=== PATIENT | male | born 1995 | race Caucasian/White ===

== ENCOUNTER 2018-06-02 17:36 | Emergency (ER) | payer SELFPAY ==
[~2018-06-02] VITALS: Ht 172.7 cm; Wt 81.6 kg
[2018-06-02 19:08] LABS: BASO # 0.1 x10^3/uL (0.0-0.2); BASO % 1 % (0-3); EOS % 0 % (0-3); HEMOGLOBIN 17.1 g/dL (13.0-17.5); LYMPH # 1.5 x10^3/uL (1.0-4.8); LYMPH % 14 % (24-48); MEAN CORPUSCULAR HEMOGLOBIN 31 pg (25-35); MEAN CORPUSCULAR HGB CONC 34 g/dL (31-37); MEAN CORPUSCULAR VOLUME 91 fL (79-100); MONO # 0.7 x10^3/uL (0.0-1.1); MONO % 7 % (0-9); NEUT # 8.8 x10^3uL (1.8-7.7); NEUT % 79 % (31-73); PLATELET COUNT 316 x10^3/uL (140-400); RED CELL DISTRIBUTION WIDTH 12.8 % (11.5-14.5); WHITE BLOOD COUNT 11.1 x10^3/uL (4.0-11.0)
[2018-06-02 19:30] LABS: CALCIUM 10.1 mg/dL (8.5-10.1); GFR 91.8; POTASSIUM 3.8 mmol/L (3.5-5.1)
[2018-06-02 20:14] LABS: BARBITURATES NEG (NEG); BENZODIAZEPINES NEG (NEG); CANNABINOIDS POS (NEG); COCAINE NEG (NEG); METHADONE NEG (NEG); OPIATES NEG (NEG); PHENCYCLIDINE NEG (NEG)
[2018-06-02 20:22] LABS: AMPHETAMINE/METHAMPHETAMINE NEG (NEG)
--- NOTE | 2018-06-02 20:45 | PHYS DOC ---
Past Medical History Past Medical History: No Pertinent History (JOESPH RÍOS APRN) Past Surgical History: No Surgical History (JOESPH RÍOS APRN) Alcohol Use: Heavy Additional Information: 12 LITTLE MINI BOTTLES A DAY, LAST DRINK 3 WEEKS AGO, PER MOTHER'S REPORT. PT REPORTS DRINKING 2 TALL BOY BEERS YESTERDAY, 5.9% ALCOHOL Drug Use: Marijuana (JOESPH RÍOS APRN) Adult General Chief Complaint Chief Complaint: CHEST PAIN HPI HPI Patient is a 23 year old male with a diagnosed history of anxiety who presents to the ED today with multiple complaints. Patient is complaining of dizziness "for years", he is also complaining of left-sided chest pain that has been happening for "weeks". Patient denies any pain right now. Denies anything specifically exacerbating or making his chest pain better. Patient also states he has intermittent episodes where he gets this chest pains, dizziness, his fingers get numb then the rest of this body becomes numb. He states he has been told he has anxiety but has never followed up with anyone. He states he uses marijuana and drinks alcohol frequently. (JOESPH RÍOS APRN) Review of Systems Review of Systems Constitutional: Denies fever or chills [] Eyes: Denies change in visual acuity, redness, or eye pain [] HENT: Denies nasal congestion or sore throat [] Respiratory: Denies cough or shortness of breath [] Cardiovascular: Reports chronic chest pain GI: Denies abdominal pain, nausea, vomiting, bloody stools or diarrhea [] : Denies dysuria or hematuria [] Musculoskeletal: Denies back pain or joint pain [] Integument: Denies rash or skin lesions [] Neurologic: Reports chronic dizziness. Denies headache, focal weakness or sensory changes [] Psych: Reports anxiety All other systems were reviewed and found to be within normal limits, except as documented in this note. (JOESPH RÍOS APRN) Allergies Allergies Allergies Coded Allergies Type Severity Reaction Last Updated Verified No Known Drug Allergies 06/02/18 No (MERVIN ALEXIS MD) Physical Exam Physical Exam Constitutional: Well developed, well nourished, no acute distress, non-toxic appearance. [] HENT: Normocephalic, atraumatic, bilateral external ears normal, oropharynx moist, no oral exudates, nose normal. [] Eyes: PERRLA, EOMI, conjunctiva normal, no discharge. [] Neck: Normal range of motion, no tenderness, supple, no stridor. [] Cardiovascular:Heart rate regular rhythm, no murmur [] Lungs & Thorax: Bilateral breath sounds clear to auscultation [] Abdomen: Bowel sounds normal, soft, no tenderness, no masses, no pulsatile masses. [] Skin: Warm, dry, no erythema, no rash. [] Back: No tenderness, no CVA tenderness. [] Extremities: No tenderness, no cyanosis, no clubbing, ROM intact, no edema. [] Neurologic: Alert and oriented X 3, normal motor function, normal sensory function, no focal deficits noted. [] Psychologic: Affect normal, judgement normal, mood normal. [] (JOESPH RÍOS APRN) Current Patient Data Vital Signs Vital Signs Date Time Temp Pulse Resp B/P (MAP) Pulse Ox O2 Delivery O2 Flow Rate FiO2 06/02/18 20:49 92 17 130/83 (99) 99 Room Air 06/02/18 17:42 98.7 98.7 (MERVIN ALEXIS MD) Lab Values Laboratory Tests Test 06/02/18 18:55 06/02/18 19:37 White Blood Count 11.1 x10^3/uL (4.0-11.0) H Red Blood Count 5.50 x10^6/uL (4.30-5.70) Hemoglobin 17.1 g/dL (13.0-17.5) Hematocrit 50.0 % (39.0-53.0) Mean Corpuscular Volume 91 fL (79-100) Mean Corpuscular Hemoglobin 31 pg (25-35) Mean Corpuscular Hemoglobin Concent 34 g/dL (31-37) Red Cell Distribution Width 12.8 % (11.5-14.5) Platelet Count 316 x10^3/uL (140-400) Neutrophils (%) (Auto) 79 % (31-73) H Lymphocytes (%) (Auto) 14 % (24-48) L Monocytes (%) (Auto) 7 % (0-9) Eosinophils (%) (Auto) 0 % (0-3) Basophils (%) (Auto) 1 % (0-3) Neutrophils # (Auto) 8.8 x10^3uL (1.8-7.7) H Lymphocytes # (Auto) 1.5 x10^3/uL (1.0-4.8) Monocytes # (Auto) 0.7 x10^3/uL (0.0-1.1) Eosinophils # (Auto) 0.0 x10^3/uL (0.0-0.7) Basophils # (Auto) 0.1 x10^3/uL (0.0-0.2) Sodium Level 139 mmol/L (136-145) Potassium Level 3.8 mmol/L (3.5-5.1) Chloride Level 99 mmol/L (98-107) Carbon Dioxide Level 21 mmol/L (21-32) Anion Gap 19 (6-14) H Blood Urea Nitrogen 9 mg/dL (8-26) Creatinine 1.0 mg/dL (0.7-1.3) Estimated GFR (Cockcroft-Gault) 91.8 Glucose Level 92 mg/dL (70-99) Calcium Level 10.1 mg/dL (8.5-10.1) Troponin I Quantitative < 0.017 ng/mL (0.000-0.055) Ethyl Alcohol Level < 10 mg/dL (0-10) Urine Opiates Screen Neg (NEG) Urine Methadone Screen Neg (NEG) Urine Barbiturates Neg (NEG) Urine Phencyclidine Screen Neg (NEG) Urine Amphetamine/Methamphetamine Neg (NEG) Urine Benzodiazepines Screen Neg (NEG) Urine Cocaine Screen Neg (NEG) Urine Cannabinoids Screen Pos (NEG) Urine Ethyl Alcohol Neg (NEG) Laboratory Tests 06/02/18 18:55 Laboratory Tests 06/02/18 18:55 (MERVIN ALEXIS MD) EKG EKG Interpreted by Dr. Keen sinus tachycardia HR 103 no STEMI[] (JOESPH RÍOS APRN) Radiology/Procedures Radiology/Procedures [] (JOESPH RÍOS APRN) Course & Med Decision Making Course & Med Decision Making Pertinent Labs and Imaging studies reviewed. (See chart for details) This is a 23-year-old male patient presented to the ED today with multiple complaints that appear chronic. Patient is complaining of chronic chest pain, chronic dizziness, chronic numbness throughout his body. Physical exam is benign. He has no chest pain in the ED. Heart score is 0. Workup in the emergency room is negative. He was discharged with instructions to follow-up with [facility] as well as her PCP. (JOESPH RÍOS APRN) Course & Med Decision Making Staff Physician Addendum: I was working in the ER during the course of this patient's visit. I was available for consultation as needed, but I was not directly involved in the care of this patient. (MERVIN ALEXIS MD) Dragon Disclaimer Dragon Disclaimer This electronic medical record was generated, in whole or in part, using a voice recognition dictation system. (JOESPH RÍOS APRN) Departure Departure Impression: Primary Impression: Dizziness Additional Impressions: Anxiety Chest pain Disposition: HOME, SELF-CARE Condition: STABLE Referrals: NO PCP (PCP) follow up with [facility] [place] Patient Instructions: Chest Pain (Nonspecific), [id number], Dizziness Additional Instructions: You were evaluated in the emergency room and we highly recommend you establish care with a primary care doctor. Come back to the ED at any point symptoms worsen. Problem Qualifiers Additional Impressions: Chest pain Chest pain type: unspecified Qualified Codes: R07.9 - Chest pain, unspecified JOESPH RÍOS APRN Jun 02, 2018 20:45 MERVIN ALEXIS MD Jun 02, 2018 22:02
[2018-06-02 20:49] VITALS: BP 130/83
--- NOTE | 2018-06-02 21:07 | RAD ---
PROCEDURE: CHEST PA LATERAL CLINICAL INDICATION: LEFT SIDED CHEST PAIN RADIATING DOWN LEFT ARM X1 MONTH. HX OF PANIC ATTACKS COMPARISON: None FINDINGS: No pneumothorax identified. Cardiac and mediastinal contours unremarkable. No pulmonary consolidation or acute airspace disease. No acute osseous abnormalities identified. IMPRESSION: No pulmonary consolidation or acute airspace disease. Electronically signed by: Austin Herrera DO (06/02/2018 9:04 PM) [facility]
--- NOTE | 2018-06-03 04:53 | EKG ---
[facility] [address] [place] [address] Test Date: 2018-06-02 Test Time: 17:44:46 Pat Name: DONNIE CHEN Department: Room: Gender: M [employer] Developer: : [id number] Requested By: JOESPH RÍOS Order Number: [id number] Reading MD: Riccardo Pinto Measurements Intervals [place] Rate: 103 P: 21 [place]: 130 QRS: 36 QRSD: 100 T: 24 QT: 338 QTc: 445 Interpretive Statements SINUS TACHYCARDIA ATRIAL PREMATURE COMPLEX(ES) Electronically Signed On 06-10-2018 10:49:24 [employer] by Riccardo Pinto
== END 2018-06-02 20:56 | disposition home or self-care (01) ==
LOC: ER 17:36
DX: F41.9 Anxiety disorder, unspecified (principal); R07.89 Other chest pain; R42 Dizziness and giddiness; F10.20 Alcohol dependence, uncomplicated; Y90.9 Presence of alcohol in blood, level not specified; F12.20 Cannabis dependence, uncomplicated
CPT/HCPCS: 36415; 71046; 80048; 80307; 84484; 85025; 93005; 99284; G0480